=== PATIENT | female | born 1945 | race Caucasian/White ===

== ENCOUNTER → 2016-04-19 | Outpatient (CLI) | payer MEDICARE, BC ==
[~2016-04-19] MED LIST: CELECOXIB200 M1 PO; CYMBALTA PO; D3 DOTS2000 UNIT PO; HYDROXYZINE HCL25 M1 PO; LEVAQUIN750 M1 PO; PHENOL-SODIUM180 M1 MM; TAMIFLU75 M1 PO; TRAMADOL HCL50 M1 PO
--- NOTE | ~2016-04-19 | BD1 ---
[facility] A Service of [facility] & [facility] RADIOLOGY TEXT RESULTS PATIENT: ROSANA FRASER LOCATION: [facility] : 41 UNIT #: [id number] AGE: [address]: SARAH DIAS APRN SEX: F ORDER DR: [id number] [facility] [address] [facility] [place], [place] [address] [id number] O MR#: [id number] Acc #: [id number] NAME: ROSANA FRASER : 1945 SEX: F STUDY DATE/TIME: 04/19/2016 12:34 UNIT: [facility] ROOM: STUDY DESCRIPTION: BD Dexa Bone Dens 1+ Site Attending Physician: Sarah Dias M.D. Referring Physician: Sarah Dias M.D. Ordering Physician: Sarah Dias M.D. Primary Care Physician: Sarah Dias M.D. MEDICAL IMAGING REPORT This report is preliminary unless electronic signature is present EXAM DXA scan, 04/19/2016. HISTORY Status post menopause with no hormone replacement therapy. Osteopenia. Hysterectomy at age 38. Family history of breast carcinoma. Arthritis. Family history of osteoporosis in mother. Smoking history for 20 years. FINDINGS Bone mineral density in the lumbar spine from L1 through L4 was 1.003 g/cm2, which is 0.4 standard deviation below the mean when compared to the young adult reference population, which is within the range of normal. This is 1.9 standard deviations above the mean when compared to the age-matched population. Bone mineral density in the left hip was 0.763 g/cm2, which is 1.5 standard deviations below the mean when compared to the young adult reference population, which is characteristic of osteopenia. This is 0.2 standard deviation above the mean when compared to the age-matched population. IMPRESSION Bone mineral density in the lumbar spine within the range of normal and within the left hip characteristic of osteopenia. Dictated by... Ranjit Beatty M.D. THIS IS AN ELECTRONICALLY VERIFIED REPORT Ranjit Beatty M.D. at 04/21/2016 9:04 AM KRT/js STS. [facility] A Service of [facility] & [facility] RADIOLOGY TEXT RESULTS PATIENT: ROSANA FRASER LOCATION: [facility] : 41 UNIT #: [id number] AGE: [address]: SARAH DIAS APRN SEX: F ORDER DR: TD: 04/19/2016 17:15 JOB #: [id number] MEDICAL IMAGING REPORT COPY
--- NOTE | ~2016-04-19 | MY11 ---
[facility] A Service of [facility] RADIOLOGY TEXT RESULTS PATIENT: ROSANA FRASER LOCATION: [facility] : 41 UNIT #: [id number] AGE: [address]: KARLA DIAS APRN SEX: F ORDER DR: [id number] [facility] [address]. [place], [place] [address] [id number] O MR#: [id number] Acc #: [id number] NAME: ROSANA FRASER : 1945 SEX: F STUDY DATE/TIME: 04/19/2016 12:03 UNIT: [facility] ROOM: STUDY DESCRIPTION: MY Mammogram Screening Dig Erik Attending Physician: Karla Dias M.D. Referring Physician: Karla Dias M.D. Ordering Physician: Karla Dias M.D. Primary Care Physician: Karla Dias M.D. MEDICAL IMAGING REPORT This report is preliminary unless electronic signature is present EXAM Digital screening mammogram 04/19/2016 HISTORY 71-year-old woman no risk elevation. History of previous breast biopsies. Annual screen. COMPARISON Outside mammograms now available 07/11/2012 12/11/2014 [place], [place]. FINDINGS Digital imaging of each breast was completed utilizing screening protocol. Review includes FDA-approved CAD device. Breast parenchyma is partially fatty replaced and mildly heterogeneous. 2 or 3 small circumscribed nodules in the right breast are stable consistent with small fibroadenomas. Occasional benign calcification in each breast. There are no suspicious mass characteristics or suspicious microcalcifications and no architectural deformity. IMPRESSION Stable benign mammogram. Annual screening recommended. Patients over the age of 40 are entered into a reminder system with target due date for the next mammogram. A result letter will also be sent to the patient. BIRADS: 2, benign findings Dictated by... Everardo Arteaga M.D. [facility] A Service of [facility] RADIOLOGY TEXT RESULTS PATIENT: ROSANA FRASER LOCATION: [facility] : 41 UNIT #: [id number] AGE: [address]: KARLA DIAS APRN SEX: F ORDER DR: THIS IS AN ELECTRONICALLY VERIFIED REPORT Everardo Arteaga M.D. at 04/28/2016 8:10 AM ERICKA/leonel TD: 04/27/2016 15:07 JOB #: [id number] MEDICAL IMAGING REPORT Page 1 of 1 COPY
== END | disposition home or self-care (01) ==
LOC: CWCC 11:42
DX: Z12.31 Encounter for screening mammogram for malignant neoplasm of breast (principal); Z78.0 Asymptomatic menopausal state; M85.88 Other specified disorders of bone density and structure, other site; Z98.890 Other specified postprocedural states; Z88.5 Allergy status to narcotic agent; Z88.8 Allergy status to other drugs, medicaments and biological substances
CPT/HCPCS: 77080; G0202